=== PATIENT | female | born 1945 | race Caucasian/White ===

== ENCOUNTER 2024-06-08 03:18 | Emergency (ER) | payer MEDICARE, SELFPAY ==
[2024-06-08 03:20] VITALS: BP 224/122; PULSE 109; RESP 22; TEMP 36.7; O2SAT 95
--- NOTE | 2024-06-08 03:39 | W.ED.GENADLT ---
HPI - General Adult General: Chief complaint: General Medical Stated complaint: HIGH BP Time Seen by Provider: 06/08/24 03:26 History of Present Illness: 79-year-old senior living patient with a history of stroke presents with hypertension. Evidently hypertension is not symptomatic. They were concerned because of the history of stroke, so sent her in for evaluation. Blood pressure on presentation is 224 systolic. The patient is able to answer yes/no questions. She says she is not in any pain. She has not had increased shortness of breath. No headache. No vision changes. No new weakness. Related Data Home Medications Medication Instructions Recorded Confirmed aspirin 81 mg tablet,delayed 81 mg PO DAILY 06/08/24 06/08/24 release atorvastatin 40 mg tablet 40 mg PO DAILY 06/08/24 06/08/24 baclofen 5 mg tablet 5 mg PO TID PRN Pain 06/08/24 06/08/24 bisacodyl 10 mg rectal suppository 10 mg CO DAILY PRN Constipation 06/08/24 06/08/24 (Dulcolax (bisacodyl)) escitalopram oxalate 5 mg tablet 5 mg PO DAILY 06/08/24 06/08/24 gabapentin 100 mg capsule 100 mg PO DAILY 06/08/24 06/08/24 glucagon 3 mg/actuation nasal 1 mg intranasal PRN PRN blood sugar 06/08/24 06/08/24 spray (Baqsimi) hydrocodone 5 mg-acetaminophen 325 1 tab PO BID 06/08/24 06/08/24 mg tablet insulin degludec 200 unit/mL (3 30 unit SUBCUT BEDTIME 06/08/24 06/08/24 mL) subcutaneous pen (Tresiba FlexTouch U-200 insulin) insulin glargine 100 unit/mL (3 50 unit SUBCUT BEDTIME 06/08/24 06/08/24 mL) subcutaneous pen (Basaglar KwikPen U-100 Insulin) magnesium hydroxide 400 mg/5 mL 30 ml PO DAILY PRN Constipation 06/08/24 06/08/24 oral suspension (Milk of Magnesia) omeprazole 20 mg capsule,delayed 20 mg PO DAILY 06/08/24 06/08/24 release sodium phosphates 19 gram-7 1 ml CO DAILY 06/08/24 06/08/24 gram/118 mL enema (Fleet Enema) valproic acid (as sodium salt) 250 125 mg PO BID 06/08/24 06/08/24 mg/5 mL oral solution Previous Rx's Medication Instructions Recorded amlodipine 10 mg tablet 10 mg PO DAILY #30 tabs 06/08/24 Physical Exam Const: COMMON NORMALS: no acute distress GENERAL APPEARANCE: anxious (Mildly) and frail appearing NUTRITIONAL APPEARANCE: overweight ORIENTATION/CONSCIOUSNESS: Yes awake, Yes oriented to person and Yes oriented to place HENMT: COMMON NORMALS: normocephalic, external ears normal and Normal external nose present HEAD & SCALP: normocephalic NOSE: Normal external nose present EXTERNAL EAR: Yes external ears normal MOUTH: no drooling Resp: COMMON NORMALS: clear to auscultation bilaterally EFFORT & INSPECTION: No tachypneic and No respiratory distress AUSCULTATION: clear to auscultation bilaterally Cardio: COMMON NORMALS: regular rate and regular rhythm RATE: regular rate RHYTHM: regular rhythm Neuro: SENSORIUM/ORIENTATION: Yes oriented to person and Yes oriented to place Course Vital Signs: Vital signs: Vital Signs Temperature 98.0 F 06/08/24 03:20 Pulse Rate 88 06/08/24 08:16 Respiratory Rate 24 H 06/08/24 05:02 Blood Pressure 125/77 06/08/24 08:16 Pulse Oximetry 95 06/08/24 08:16 Oxygen Delivery Me thod Nasal Cannula 06/08/24 05:02 Oxygen Flow Rate 2 06/08/24 05:02 [facility] - General Adult Medical Decision Making Blood pressure was 224 systolic on arrival. Currently 115/64. She was given half milligram of Ativan, she appeared quite anxious. Still asymptomatic. Hemoglobin is 18. White blood cell count is 12. Chest x-ray shows some mild pulmonary vascular congestion. She is given a dose of Lasix here. Blood sugar was significantly elevated at 458, down now to 316 after some insulin. She is due for insulin this morning. With improvement in her blood pressure, asymptomatic status, she will be allowed discharge. Lab Data 06/08/24 04:20 06/08/24 04:20 Radiology Impressions Chest X-Ray 06/08/24 03:53 IMPRESSION: Mild cardiomegaly with vascular congestion. Laboratory Results WBC 11.95 10^3/uL (3.29-11.43) H 06/08/24 04:20 RBC 5.62 10^6/uL (3.85-5.65) 06/08/24 04:20 Hgb 18.20 g/dL (11.27-16.99) H 06/08/24 04:20 Hct 55.8 % (36-47) H 06/08/24 04:20 MCV 99.3 fl (85-98) H 06/08/24 04:20 MCH 32.4 pg (27-33) 06/08/24 04:20 MCHC 32.6 g/dL (30-55) 06/08/24 04:20 RDW 13.1 % (12.1-15.1) 06/08/24 04:20 Plt Count 269 10^3/cmm (157-399) 06/08/24 04:20 MPV 11.9 fL (7.4-10.4) H 06/08/24 04:20 Neut % (Auto) 61.2 % 06/08/24 04:20 Lymph % (Auto) 25.0 % 06/08/24 04:20 Weld % (Auto) 13.0 % 06/08/24 04:20 Eos % (Auto) 0.2 % 06/08/24 04:20 Baso % (Auto) 0.3 % 06/08/24 04:20 Neut # (Auto) 7.32 10^3/uL (1.8-7.7) 06/08/24 04:20 Lymph # (Auto) 3.0 10^3/uL (0.8-4.8) 06/08/24 04:20 Weld # (Auto) 1.6 10^3/uL (0.2-0.9) H 06/08/24 04:20 Eos # (Auto) 0.0 10^3/uL (0.0-0.8) 06/08/24 04:20 Baso # (Auto) 0.0 10^3/uL (0.0-0.1) 06/08/24 04:20 Nucleated RBC % (auto) 0.2 % 06/08/24 04:20 Nucleated RBCs # 0.0 /100WBC 06/08/24 04:20 Sodium 143 mmol/L (136-145) 06/08/24 04:20 Potassium 3.6 mmol/L (3.5-5.1) 06/08/24 04:20 Chloride 97 mmol/L (98-107) L 06/08/24 04:20 Carbon Dioxide 34 mmol/L (22-29) H 06/08/24 04:20 Anion Gap 15.6 (5-19) 06/08/24 04:20 BUN 37 mg/dL (8-23) H 06/08/24 04:20 Creatinine 0.9 mg/dL (0.5-0.9) 06/08/24 04:20 GFR Calculation Not Reportable 06/08/24 04:20 Glucose 458 mg/dL (65-115) H 06/08/24 04:20 POC Glucose 351 mg/dL (70-110) H 06/08/24 07:55 Calculated Osmolality 325 mOsm/kg (285-295) H 06/08/24 04:20 Calcium 10.0 mg/dL (8.5-10.5) 06/08/24 04:20 Magnesium 2.1 mg/dL (1.7-2.3) 06/08/24 04:20 Total Bilirubin 0.5 mg/dL (0.15-1.2) 06/08/24 04:20 AST 61 U/L (0-32) H 06/08/24 04:20 ALT 65 U/L (0-33) H 06/08/24 04:20 Alkaline Phosphatase 171 U/L (35-105) H 06/08/24 04:20 NT-Pro-B Natriuret Pep 1952 pg/mL (0-450) H 06/08/24 04:20 Total Protein 8.3 g/dL (6.6-8.7) 06/08/24 04:20 Albumin 3.4 g/dL (3.5-5.2) L 06/08/24 04:20 Globulin 4.9 g/dL (1.3-4.6) H 06/08/24 04:20 Serum Ketones Negative (Negative) 06/08/24 04:20 All radiology interpretation(s) finalized by discharge Discharge Plan Discharge Patient Disposition: Home Clinical Impression: Asymptomatic hypertensive urgency Condition: Stable Prescriptions: New amlodipine 10 mg tablet 10 mg PO DAILY Qty: 30 0RF No Action atorvastatin 40 mg tablet 40 mg PO DAILY hydrocodone-acetaminophen 5-325 mg tablet 1 tab PO BID aspirin [Aspir-81] 81 mg Tablet,Delayed Release (Dr/Ec) 81 mg PO DAILY magnesium hydroxide [Milk of Magnesia] 400 mg/5 mL Suspension 30 ml PO DAILY PRN (Reason: Constipation) valproic acid (as sodium salt) 250 mg/5 mL solution 125 mg PO BID Rx Instructions: take 2.5 ml by mouth twice daily bisacodyl [Dulcolax (bisacodyl)] 10 mg Suppository 10 mg CO DAILY PRN (Reason: Constipation) Fleet Enema 19-7 gram/118 mL Enema 1 ml CO DAILY omeprazole 20 mg Capsule,Delayed Release(Dr/Ec) 20 mg PO DAILY gabapentin 100 mg capsule 100 mg PO DAILY escitalopram oxalate 5 mg tablet 5 mg PO DAILY insulin glargine [Basaglar KwikPen U-100 Insulin] 100 unit/mL (3 mL) Insulin Pen 50 unit SUBCUT BEDTIME insulin degludec [Tresiba FlexTouch U-200] 200 unit/mL (3 mL) insulin pen 30 unit SUBCUT BEDTIME baclofen 5 mg tablet 5 mg PO TID PRN (Reason: Pain) Baqsimi 3 mg/actuation [place],Non-Aerosol 1 mg INTRANASAL PRN PRN (Reason: blood sugar) Discharge Orders: Discharge ED (Routine); Ordered 06/08/24 Ordered By: Marques Holbrook Patient Instructions: Hypertension (ED), Opioid Safety, Pain Management Activity Restrictions/Additional Instructions: Check blood pressures twice daily. If numbers are staying greater than 150/90, you may take the medication prescribed. Return for any other concerning symptoms such as chest discomfort, headache, vision changes, fever, etc. See your doctor this coming week. Coding Level of Care Code ED Animal Feeder for Michael Gil
[2024-06-08 03:49] LABS: Glucose Point of Care 432 mg/dL (70-110)
--- NOTE | 2024-06-08 03:53 | XRR_ITS ---
PROCEDURE INFORMATION: Exam: XR Chest Exam date and time: 06/08/2024 4:04 AM Age: 79 years old Clinical indication: Prior surgery; Surgery date: 6+ months; Surgery type: Peg tube; Patient HX: EMS arrival from long term for hypertension; Additional info: HTN TECHNIQUE: Imaging protocol: Radiologic exam of the chest. Views: 1 view. COMPARISON: No relevant prior studies available. FINDINGS: Lungs: No infiltrate. Pleural spaces: Unremarkable. No pleural effusion. No pneumothorax. Heart/Mediastinum: There is mild cardiomegaly with vascular congestion. Bones/joints: Unremarkable. XR/XR chest 1V portable [id number] IMPRESSION: Mild cardiomegaly with vascular congestion.
--- NOTE | 2024-06-08 03:54 | ECG_ITS ---
[employer] Test Date: 2024-06-08 Pat Name: Ruthie Lares Department: Room: Gender: Female Sales And Catering Coordinator: : 1945 Requested By: Marques Blount Order Number: [id number] Sonia MD: Preethi Brooks M.D. Measurements Intervals Tilly Rate: 87 P: 21 SD: 165 QRS: -75 QRSD: 89 T: 258 QT: 367 QTc: 443 Interpretive Statements SINUS RHYTHM LEFT AXIS DEVIATION [QRS AXIS < -30] POSSIBLE RIGHT VENTRICULAR CONDUCTION DELAY [RSR (QR) IN V1/V2] PROBABLE ANTEROSEPTAL MYOCARDIAL INFARCTION , OF INDETERMINATE AGE [35 ms Q WAVE IN V1-V4] MODERATE T-WAVE ABNORMALITY, CONSIDER LATERAL ISCHEMIA [-0.1+ mV T-WAVE IN I/aVL/V5/V6] MODERATE T-WAVE ABNORMALITY, CONSIDER INFERIOR ISCHEMIA [-0.1+ mV T-WAVE IN II/aVF] No previous ECG available for comparison Electronically Signed On 06-08-2024 15:55:01 [employer] by Preethi Brooks M.D. [email or web address]
[2024-06-08] MEDS: LORazepam 2 mg/mL INJ 1 mL 0.5 MG IVP (04:15)
[2024-06-08] MEDS: labetalol 5 mg/mL SDV 20mL 20 MG IVP (04:17)
[2024-06-08] MEDS: metoprolol tartrate 50 mg Tablet PO (04:17)
[2024-06-08] MEDS: insulin regular-human 100 units/1 mL 10 UNIT IVP (04:18)
[2024-06-08] MEDS: amlodipine 5 mg Tablet PO (04:18)
[2024-06-08 04:25] LABS: Basophils % 0.3 %; Eosinophils % 0.2 %; Hematocrit 55.8 % (36-47); Mean Corpuscular HGB Conc 32.6 g/dL (30-55); Mean Corpuscular Hemoglobin 32.4 pg (27-33); Mean Corpuscular Volume 99.3 fl (85-98); Mean Platelet Volume 11.9 fL (7.4-10.4); Monocytes # 1.6 10^3/uL (0.2-0.9); Neutrophils # 7.32 10^3/uL (1.8-7.7); Neutrophils % 61.2 %; Nucleated Red Blood Cells % 0.2 %; Platelet Count 269 10^3/cmm (157-399); Red Blood Count 5.62 10^6/uL (3.85-5.65); Red Cell Distribution Width 13.1 % (12.1-15.1); White Blood Count 11.95 10^3/uL (3.29-11.43)
[2024-06-08 04:30] VITALS: BP 105/61; PULSE 87; RESP 22; O2SAT 92
[2024-06-08 04:32] LABS: Ketone (Acetest) Serum Negative (Negative)
[2024-06-08 04:51] LABS: Glucose Point of Care 316 mg/dL (70-110)
[2024-06-08 04:51] LABS: Alanine Aminotransferase 65 U/L (0-33); Albumin Level 3.4 g/dL (3.5-5.2); Alkaline Phosphatase 171 U/L (35-105); Anion Gap 15.6 (5-19); Aspartate Amino Transferase 61 U/L (0-32); Blood Urea Nitrogen 37 mg/dL (8-23); Carbon Dioxide 34 mmol/L (22-29); Chloride 97 mmol/L (98-107); Globulin 4.9 g/dL (1.3-4.6); Glucose 458 mg/dL (65-115); Magnesium 2.1 mg/dL (1.7-2.3); NT Pro B Type Natriuretic Pept 1952 pg/mL (0-450); Osmolality Calculated 325 mOsm/kg (285-295); Potassium 3.6 mmol/L (3.5-5.1); Sodium 143 mmol/L (136-145); Total Bilirubin 0.5 mg/dL (0.15-1.2); Total Protein 8.3 g/dL (6.6-8.7)
[2024-06-08 05:02] VITALS: BP 104/65; PULSE 93; RESP 24; O2SAT 94
[2024-06-08] MEDS: FUROsemide 10 mg/mL SDV 4mL 40 MG IVP (06:00)
[2024-06-08 07:57] LABS: Glucose Point of Care 351 mg/dL (70-110)
[2024-06-08 08:16] VITALS: BP 125/77; PULSE 88; O2SAT 95
== END 2024-06-08 08:20 | disposition home or self-care (01) ==
PROVIDERS: Emergency Provider Emergency Medicine
DX: I16.0 Hypertensive urgency (principal); Z79.4 Long term (current) use of insulin
CPT/HCPCS: 36416; 71045; 80053; 82009; 82962; 83735; 83880; 85025; 93005; 96374; 96375; 99285; J1815; J1940; J2060; J3490